=== PATIENT | male | born 1985 | race American Indian/Alaskan Native ===

== ENCOUNTER 2016-10-22 19:59 | Emergency (ER) | payer OTHER ==
[2016-10-22 20:36] VITALS: BP 127/80
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
[2016-10-22] MEDS ORDERED: FLEXERIL PO ONE (21:46)
[2016-10-22] MEDS ORDERED: NORCO 5/325 PO ONE (21:46)
== END 2016-10-22 22:24 | disposition home or self-care (01) ==
LOC: ED 19:59
DX: S16.1XXA Strain of muscle, fascia and tendon at neck level, initial encounter (principal); M25.519 Pain in unspecified shoulder; V49.59XA Passenger injured in collision with other motor vehicles in traffic accident, initial encounter; Y93.89 Activity, other specified; Y99.8 Other external cause status; Y92.488 Other paved roadways as the place of occurrence of the external cause
CPT/HCPCS: 72125